=== PATIENT | male | born 1980 | race Caucasian/White ===

== ENCOUNTER 2020-10-20 11:44 | Emergency (ER) | payer SELFPAY ==
[2020-10-20 11:55] VITALS: BP 170/111; PULSE 68; RESP 18; TEMP 36.6; O2SAT 98; BMI 31.2
[2020-10-20 12:36] VITALS: BP 192/131; PULSE 74; RESP 15; O2SAT 96
--- NOTE | 2020-10-20 12:48 | ED_ITS ---
HPI - Male Genitourinary General: Chief complaint: Urogenital-Male Stated complaint: Pain in L ABD Time Seen by Provider: 10/20/20 12:24 History of Present Illness: HPI Narrative: Patient is a 40-year-old male comes to the ED with left flank pain. Patient has a past medical history of kidney stones. This morning left flank pain woke him up. He rates it at 10 out of 10 and says the pain starts in his back where his kidneys are and radiates down into his bladder. He has had nausea but no episodes of emesis. He is taken Tylenol and ibuprofen this morning and it has not provided any relief. Denies any fever, chills, chest pain, abdominal pain, bladder or bowel symptoms. Denies any dysuria, hematuria or increased urine frequency. Associated symptoms: Deny dysuria, hematuria, nausea or vomiting Review of Systems Const: Denies: fever(s), chills or fatigue Eyes: Denies: change in vision or eye discomfort ENMT: Denies: throat pain, odynophagia, nasal discharge or nasal congestion Card: Denies: chest pain, palpitations, edema, swelling of feet/ankles, dyspnea on exertion or orthopnea Resp: Denies: dyspnea, productive cough or non-productive cough GI: Denies: abdominal pain, nausea, vomiting, diarrhea, constipation or hematochezia : Reports: flank pain (left); Denies: difficulty urinating, dysuria or hematuria Musc: Denies: neck pain, back pain or extremity swelling Skin/Breast: Denies: rash or new lesions Neuro: Denies: headache(s), numbness in extremities or weakness in extremities Physical Exam Const: COMMON NORMALS: patient oriented x3 and alert GENERAL APPEARANCE: cooperative; not comfortable (Patient appears uncomfortable due to pain.) HENMT: COMMON NORMALS: normocephalic HEAD & SCALP: normocephalic MOUTH: Normal oral and palatal mucosa present THROAT: posterior oropharynx normal and uvula midline Neck/C-Spine: COMMON NORMALS: supple GENERAL: Yes normal visual inspection Resp: COMMON NORMALS: normal respiratory effort, No retractions, No use of accessory muscles and clear to auscultation bilaterally AUSCULTATION: clear to auscultation bilaterally Cardio: COMMON NORMALS: regular rate, regular rhythm, S1 normal heart sound present, S2 normal heart sound present, No gallops present (Cardio), No clicks present (Cardio), No murmurs present (Cardio) and Peripheral pulses 2+ throughout RATE: regular rate RHYTHM: regular rhythm HEART SOUNDS: S1 normal heart sound present and S2 normal heart sound present PERIPHERAL PULSES: Peripheral pulses 2+ throughout GI: COMMON NORMALS: Normal to inspection, nondistended, normoactive bowel sounds present, Soft to palpation, non-tender and no masses PALPATION: Yes Soft to palpation : BLADDER/KIDNEY EXAM: Yes CVA tenderness on the left (mild) Back/Pelvis: GENERAL BACK: Yes CVA tenderness Extremity: COMMON NORMALS: normal to inspection Neuro: COMMON NORMALS: patient oriented x3 and moves all extremities SENSORIUM/ORIENTATION: Yes alert Skin: GENERAL SKIN EXAM: dry skin Course Reevaluation(s): Reevaluation #1: Checked on patient after he received the Toradol. He says his pain is resolved. Time: 16:11 Vital Signs: Vital signs: Vital Signs Temperature 97.9 F 10/20/20 11:55 Pulse Rate 63 10/20/20 16:25 Respiratory Rate 14 10/20/20 16:25 Blood Pressure 159/83 10/20/20 16:25 Pulse Oximetry 96 10/20/20 16:25 MDM - Male MDM Narrative: Medical decision making narrative: Patient is a 40-year-old male comes to the ED with left flank pain. White blood cell 13.5, creatinine 1.4 and UA shows RBCs and no signs of infection.. Patient was given IV fluids, morphine and Zofran and his symptoms improved. CT of abdomen pelvis showed left kidney stone present that is approximately 3 mm in size and at the UVJ. I placed an order with case management for patient to be referred to Dr. Dodson the urologist. Patient had some more pain after the morphine wore off and he was given Toradol and his pain resolved completely. Patient was discharged home with a prescription for tamsulosin, Zofran, Naprosyn and hydrocodone. He was told to have his creatinine level rechecked in about 5 days at his PCP. Told him to strain his urine to catch stone so he can bring it to the urologist for further evaluation. Return to ED precautions given. Told him that manager biologics will contact them next several days set up an appointment with Dr. Dodson. Patient understood and agreed with plan. Lab Data: Attestation: I reviewed the patient's lab results. Labs: Lab Results 10/20/20 10/20/20 10/20/20 Range/Units 12:40 14:00 14:00 WBC 13.5 H (4.0-10.0) 10^3/ uL RBC 5.47 H (4.1-5.3) 10^6/u L Hgb 14.1 (11.7-16.6) g/dL Hct 43.6 (42.0-52.0) % MCV 79.7 L (80-94) fL MCH 25.8 L (28.0-34.0) pg MCHC 32.3 (30.0-36.0) g/dL RDW 13.5 (12.1-15.1) % Plt Count 204 (130-400) 10^3/c mm MPV 9.7 (7.4-10.4) fL Neut % (Auto) 83.8 % Lymph % (Auto) 9.7 % [place] % (Auto) 5.4 % Eos % (Auto) 0.4 % Baso % (Auto) 0.4 % Neut # (Auto) 11.35 H (1.8-7.7) 10^3/u L Lymph # (Auto) 1.3 (0.8-4.8) 10^3/u L [place] # (Auto) 0.7 (0.2-0.9) 10^3/u L Eos # (Auto) 0.1 (0.0-0.8) 10^3/u L Baso # (Auto) 0.1 (0.0-0.1) 10^3/u L Nucleated RBC % (a uto) 0 % Nucleated RBCs # 0.0 /100WBC Sodium 134 L (136-145) mmol/L Potassium 3.8 (3.5-5.1) mmol/L Chloride 103 (98-107) mmol/L Carbon Dioxide 22 (22-29) mmol/L Anion Gap 12.8 (5-19) BUN 15 (6-20) mg/dL Creatinine 1.4 H (0.7-1.2) mg/dL GFR Calculation 56.1 L (90-130) mL/min Glucose 96 (65-115) mg/dL Calculated Osmolal ity 279 L (285-295) mOsm/k g Calcium 8.4 L (8.5-10.5) mg/dL Total Bilirubin 0.6 (0.15-1.2) mg/dL AST 28 (0-40) U/L ALT 37 (0-41) U/L Alkaline Phosphata se 79 (40-130) IU/L Total Protein 6.4 L (6.6-8.7) g/dL Albumin 3.9 (3.5-5.2) g/dL Globulin 2.5 (1.3-4.6) g/dL Lipase 22 (13-60) U/L Urine Color Straw (Yellow) Urine Appearance Clear (CLEAR) Urine pH 6.5 (5-7) Ur Specific Gravit y 1.010 (1.005-1.030) Urine Protein Neg (Negative) Urine Glucose (UA) Norm (Normal) Urine Ketones Negative (Negative) Urine Blood 2+ H (Negative) Urine Nitrate Negative (Negative) Urine Bilirubin Neg (Negative) Urine Urobilinogen Norm (Negative) mg/dL Ur Leukocyte ase Negative (Negative) Urine RBC 5-10 H (0-2) /hpf Urine WBC None (0-5) /hpf Ur Squamous Epith Cells None (0-5) /hpf Amorphous Sediment Not Reportable Urine Bacteria Trace (NONE) /hpf Imaging Data: CT Abd/Pel: Attestation: I personally reviewed and interpreted this imaging study as follows: Radiologist's impression: [address] [address] [address] Scan Report Signed Patient: Crystal Hatfield Unit #: [id number] : 1980 Age/Sex: 40 / M ADM Date: 10/20/20 Loc: ER Room/Bed: Attending Dr: Ordering Provider/Ordering MD: Blaine Olmos Date of Service: 10/20/20 Procedure(s): CT kidney stone 17643 Accession Number(s): [id number] Report Number: [id number] PROCEDURE INFORMATION: Exam: CT Abdomen And Pelvis Without Contrast Exam date and time: 10/20/2020 12:55 PM Age: 40 years old Clinical indication: Abdominal pain; Left; Patient HX: C/O L flank pain intermittent x 5 days worsening today - HX of stones; Additional info: Left flank pain and nausea, history of kidney stones TECHNIQUE: Imaging protocol: Computed tomography of the abdomen and pelvis without contrast. Radiation optimization: All CT scans at this facility use at least one of these dose optimization techniques: automated exposure control; mA and/or kV adjustment per patient size (includes targeted exams where dose is matched to clinical indication); or iterative reconstruction. COMPARISON: CR Hip 2-3v RIGHT wwo Pelv* [id number] 03/12/2018 2:22 PM RADIATION DOSE METRICS: Total DLP (mGy-cm): 2068.56 FINDINGS: Detailed evaluation of the abdominal and pelvic viscera is somewhat limited in the absence of intravenous contrast. Lungs: Interstitial and mild airspace disease. Liver: Fatty infiltration of the liver. Gallbladder and bile ducts: No cholelithiasis or biliary ductal dilatation. Pancreas: No pancreatic mass or ductal dilatation. Spleen: Enlarged spleen measuring 12.4 cm in length. Adrenal glands: Unremarkable adrenals. Kidneys and ureters: Mild left hydronephrosis in association with a 3 mm distal left ureteral calculus, just proximal to the UVJ. Nonobstructing bilateral renal calculi, including an 8 mm right renal calculus. Prominent infiltration of left perinephric fat. Multiple nodular hypodense renal lesions, including a 3.7 cm cyst in the anterior right kidney. Stomach and bowel: Questionable wall thickening in the nondistended stomach. No significant small bowel dilatation. Diverticula, without pericolonic inflammation. Appendix: No acute appendicitis. Intraperitoneal space: No significant free fluid. Vasculature: Normal caliber of the abdominal aorta. Lymph nodes: Subcentimeter lymph nodes. Urinary bladder: Mild bladder wall thickening. Reproductive: Punctate prostate calcification. Bones/joints: Degenerative change and disc bulging. Soft tissues: Small umbilical hernia. CT/CT kidney stone [id number] IMPRESSION: 1. Mild left hydronephrosis in association with a 3 mm distal left ureteral calculus, just proximal to the UVJ. 2. Nonobstructing bilateral renal calculi, including an 8 mm right renal calculus. 3. Additional findings as described above. COMMENTS: Consistent with the [employer]'s Incidental Findings Committee white paper (J Am Dae Radiol 2018): Any incidental renal lesion less than 1 cm or classified as too small to characterize, or any incidental cystic renal lesion characterized as simple-appearing, is likely benign. No follow-up imaging is recommended for these lesions per consensus recommendations based on imaging criteria. Radiation Dose CTDIVOL = (mGy): DLP = 2068.56 (mGy-cm) Dictated By: Lonnie Beatty MD Signed By: Lonnie Beatty MD Signed Date/Time: 10/20/20 1501 DD/ 1500 Discharge Plan Discharge Patient Disposition: Home Clinical Impression: Kidney stone on left side, Elevated serum creatinine Condition: Stable Prescriptions: New tamsulosin 0.4 mg capsule 0.4 mg PO DAILY Qty: 20 RF: 0 Zofran 4 mg tablet 4 mg PO Q8H PRN (Reason: nausea and vomiting) Qty: 12 RF: 0 Naprosyn 500 mg tablet 500 mg PO BID PRN (Reason: pain) Qty: 15 RF: 0 No Action No Known Home Medications RF: 0 Discharge Orders: Discharge ED (Routine); Ordered 10/20/20 Ordered By: Blaine Olmos Referrals: Dennis Garcia DO [Primary Care Provider] - Discharge Diet: Regular Discharge Activity: Increase activity as tolerated Patient Instructions: Kidney Stones (ED), How to Strain Your Urine (ED), Opioid Safety Activity Restrictions/Additional Instructions: Follow-up with medical provider as directed. manager of training and development will contact you in the next several days set up an appointment with Dr. Dodson, the urologist. Drink plenty of fluids. have your creatinine level rechecked at your primary care physician's office in about 5 days. take medications as prescribed. Return to the ER or your medical provider if condition worsens. Please read and understand discharge instructions. Thank you for choosing [facility] for your healthcare needs today. Please realize this is an emergency room and that we are providing you with a medical screening exam and this may not be complete and all inclusive of all the testing and or work up that you may need to determine your ailment or severity of your illness. It is very important that you follow up as instructed or that you return to the Emergency Department should you have concerns or if your condition changes or worsens in any way. Coding Level of Care Code ED [employer] for Chg Fwd Exam Comprehensive
--- NOTE | 2020-10-20 12:55 | CTR_ITS ---
PROCEDURE INFORMATION: Exam: CT Abdomen And Pelvis Without Contrast Exam date and time: 10/20/2020 12:55 PM Age: 40 years old Clinical indication: Abdominal pain; Left; Patient HX: C/O L flank pain intermittent x 5 days worsening today - HX of stones; Additional info: Left flank pain and nausea, history of kidney stones TECHNIQUE: Imaging protocol: Computed tomography of the abdomen and pelvis without contrast. Radiation optimization: All CT scans at this facility use at least one of these dose optimization techniques: automated exposure control; mA and/or kV adjustment per patient size (includes targeted exams where dose is matched to clinical indication); or iterative reconstruction. COMPARISON: CR Hip 2-3v RIGHT wwo Pelv* [id number] 03/12/2018 2:22 PM RADIATION DOSE METRICS: Total DLP (mGy-cm): 2067.56 FINDINGS: Detailed evaluation of the abdominal and pelvic viscera is somewhat limited in the absence of intravenous contrast. Lungs: Interstitial and mild airspace disease. Liver: Fatty infiltration of the liver. Gallbladder and bile ducts: No cholelithiasis or biliary ductal dilatation. Pancreas: No pancreatic mass or ductal dilatation. Spleen: Enlarged spleen measuring 12.4 cm in length. Adrenal glands: Unremarkable adrenals. Kidneys and ureters: Mild left hydronephrosis in association with a 3 mm distal left ureteral calculus, just proximal to the UVJ. Nonobstructing bilateral renal calculi, including an 8 mm right renal calculus. Prominent infiltration of left perinephric fat. Multiple nodular hypodense renal lesions, including a 3.7 cm cyst in the anterior right kidney. Stomach and bowel: Questionable wall thickening in the nondistended stomach. No significant small bowel dilatation. Diverticula, without pericolonic inflammation. Appendix: No acute appendicitis. Intraperitoneal space: No significant free fluid. Vasculature: Normal caliber of the abdominal aorta. Lymph nodes: Subcentimeter lymph nodes. Urinary bladder: Mild bladder wall thickening. Reproductive: Punctate prostate calcification. Bones/joints: Degenerative change and disc bulging. Soft tissues: Small umbilical hernia. CT/CT kidney stone [id number] IMPRESSION: 1. Mild left hydronephrosis in association with a 3 mm distal left ureteral calculus, just proximal to the UVJ. 2. Nonobstructing bilateral renal calculi, including an 8 mm right renal calculus. 3. Additional findings as described above. COMMENTS: Consistent with the [employer]'s Incidental Findings Committee white paper (J Am Dae Radiol 2018): Any incidental renal lesion less than 1 cm or classified as too small to characterize, or any incidental cystic renal lesion characterized as simple-appearing, is likely benign. No follow-up imaging is recommended for these lesions per consensus recommendations based on imaging criteria. Radiation Dose CTDIVOL = (mGy): DLP = 2068.56 (mGy-cm)
[2020-10-20 13:28] LABS: Add Urine Culture? No; Bacteria Urine TRACE /hpf; Bilirubin Urine Neg (Negative); Blood Urine 2+ (Negative); Glucose Urine UA Norm (Normal); Ketones Urine Negative (Negative); Leukocyte Esterase Urine Negative (Negative); Nitrate Urine Negative (Negative); Protein Urine Neg (Negative); Urine Appearance Clear (CLEAR); Urine Color Straw (Yellow); Urobilinogen Urine Norm (Negative); pH Urine 6.5 (5-7)
[2020-10-20] MEDS: ondansetron 2 mg/ML SDV 2 mL 4 MG IVP (14:03)
[2020-10-20] MEDS: morphine 4 mg/mL SDV 1 mL IVP (14:03)
[2020-10-20 14:11] LABS: Basophils # 0.1 10^3/uL (0.0-0.1); Basophils % 0.4 %; Eosinophils # 0.1 10^3/uL (0.0-0.8); Eosinophils % 0.4 %; Hematocrit 43.6 % (42.0-52.0); Hemoglobin 14.1 g/dL (11.7-16.6); Lymphocytes # 1.3 10^3/uL (0.8-4.8); Lymphocytes % 9.7 %; Mean Corpuscular HGB Conc 32.3 g/dL (30.0-36.0); Mean Corpuscular Hemoglobin 25.8 pg (28.0-34.0); Mean Corpuscular Volume 79.7 fL (80-94); Mean Platelet Volume 9.7 fL (7.4-10.4); Monocytes # 0.7 10^3/uL (0.2-0.9); Monocytes % 5.4 %; Neutrophils # 11.35 10^3/uL (1.8-7.7); Neutrophils % 83.8 %; Nucleated Red Blood Cells % 0 %; Platelet Count 204 10^3/cmm (130-400); Red Blood Count 5.47 10^6/uL (4.1-5.3); Red Cell Distribution Width 13.5 % (12.1-15.1); White Blood Count 13.5 10^3/uL (4.0-10.0)
[2020-10-20 14:32] VITALS: BP 145/92; PULSE 75; RESP 13; O2SAT 97
[2020-10-20 14:44] LABS: Alanine Aminotransferase 37 U/L (0-41); Albumin Level 3.9 g/dL (3.5-5.2); Alkaline Phosphatase 79 IU/L (40-130); Anion Gap 12.8 (5-19); Aspartate Amino Transferase 28 U/L (0-40); Blood Urea Nitrogen 15 mg/dL (6-20); Calcium 8.4 mg/dL (8.5-10.5); Carbon Dioxide 22 mmol/L (22-29); Chloride 103 mmol/L (98-107); Globulin 2.5 g/dL (1.3-4.6); Glomerular Filtration Rate 56.1 mL/min (90-130); Glucose 96 mg/dL (65-115); Lipase 22 U/L (13-60); Osmolality Calculated 279 mOsm/kg (285-295); Potassium 3.8 mmol/L (3.5-5.1); Sodium 134 mmol/L (136-145); Total Bilirubin 0.6 mg/dL (0.15-1.2); Total Protein 6.4 g/dL (6.6-8.7)
--- NOTE | 2020-10-20 15:20 | PC.NURSE ---
UPdated provider on patient's blood pressures. No new orders received.
[2020-10-20] MEDS: sodium chloride 0.9% 500 ML 999 ML IV (15:26)
[2020-10-20] MEDS: ketorolac 30 mg/mL INJ IVP (15:26)
[2020-10-20] MEDS: tamsulosin 0.4 mg Capsule PO (15:26)
[2020-10-20 16:25] VITALS: BP 159/83; PULSE 63; RESP 14; O2SAT 96
--- NOTE | 2020-10-22 10:48 | DCPLANNER ---
immigration manager had message to schedule a follow up appointment for patient with Dr. Dodson. immigration manager called the office of Dr. Dodson, spoke with Raquel, gave clinic patients information. immigration manager was told that patients information will be printed and reviewed. Clinic will call patient with appointment information.
--- NOTE | 2020-10-23 14:43 | DCPLANNER ---
Patient has a follow up appointment scheduled for Thursday, October 24, [address] at 9:[address] Dodson. Clinic will call patient with appointment information.
--- NOTE | 2020-11-22 11:05 | DCPLANNER ---
Patient had a follow up appointment scheduled for 10.24.[address] Dodson - patient did attend appointment.
== END 2020-10-20 16:31 | disposition home or self-care (01) ==
PROVIDERS: Emergency Provider Physician Assistant; PCP Family Medicine
DX: N20.0 Calculus of kidney (principal); R79.89 Other specified abnormal findings of blood chemistry
CPT/HCPCS: 74176; 80053; 81001; 83690; 85025; 96374; 96375; 99284; J1885; J2270; J2405; J7040

== ENCOUNTER 2020-10-24 08:07 | Outpatient (CLI) | payer SELFPAY ==
--- NOTE | 2020-10-24 08:00 | XR_ITS ---
WS: [id number] KUB, AP view, 10/24/2020 Clinical Data: STONE Comparison: CT abdomen and pelvis, 10/20/2020. Findings: There are bilateral renal calculi. The distal left UVJ calculus is difficult to see. No abnormal intraabdominal masses are seen. There is no dilatated small bowel or evidence of obstruct ion. XR/XR KUB [id number] Impression: 1. Bilateral renal calculi. 2. Probable distal left ureteral calculus.
== END 2020-10-24 08:08 | disposition home or self-care (01) ==
LOC: RAD 08:07
PROVIDERS: PCP Family Medicine; Visit Provider Urology
DX: N20.0 Calculus of kidney (principal)
CPT/HCPCS: 74018; 81003

== ENCOUNTER 2020-11-28 14:49 | Outpatient (CLI) | payer SELFPAY ==
--- NOTE | 2020-11-28 14:55 | XR_ITS ---
WS: [id number] Exam: XR KUB [id number] Date/Time of Exam: 11/28/2020 2:57 PM Reason For Exam: ureteral calculus Comparison 10/24/2020. There are several calcifications superimposing both kidneys most likely renal calculi. No bowel obstr uction or free air. No sign of organ enlargement. Regional bony elements appear normal. XR/XR KUB [id number] IMPRESSION: 1. Calcifications superimposing both renal silhouettes most likely bilateral re nal calculi. 2. No acute abdominal finding.
== END 2020-11-28 14:50 | disposition home or self-care (01) ==
PROVIDERS: Visit Provider Urology
DX: N20.1 Calculus of ureter (principal); N20.0 Calculus of kidney
CPT/HCPCS: 74018; 82365; 88300